=== PATIENT | female | born 1940 | race Caucasian/White ===

== ENCOUNTER 2018-12-05 15:36 | Inpatient (IN) | payer MEDICARE ==
[~2018-12-05] VITALS: Ht 162.6 cm; Wt 54.9 kg
[2018-12-05 16:25] LABS: BASOPHILS ABSOLUTE AUTO 0.02 K/mm3 (0.00-0.23); BASOPHILS PERCENT AUTO 0 % (0-2); EOSINOPHILS PERCENT AUTO 0 % (0-6); Hematocrit 46.8 % (33.0-51.0); IMMATURE GRAN ABSOLUTE AUTO 0.06 K/mm3 (0.00-0.10); IMMATURE GRAN PERCENT AUTO 1 % (0-1); LYMPHOCYTES ABSOLUTE AUTO 0.94 K/mm3 (0.84-5.20); LYMPHOCYTES PERCENT AUTO 9 % (21-46); MONOCYTES ABSOLUTE AUTO 0.97 K/mm3 (0.16-1.47); MONOCYTES PERCENT AUTO 9 % (4-13); Mean Corpuscular HGB 31.6 pg (26.0-34.0); Mean Corpuscular HGB Conc 32.1 g/dL (31.5-36.5); Mean Corpuscular Volume 99 fL (80-100); Mean Platelet Volume 10.7 fL (9.1-12.4); NEUTROPHILS ABSOLUTE AUTO 8.56 K/mm3 (1.96-9.15); NEUTROPHILS PERCENT AUTO 81 % (41-73); Platelet Count 208 K/mm3 (150-400); RDW Coefficient Variation 14.4 % (11.7-14.2); RDW Standard Deviation 51.9 fL (35.1-46.3); Red Blood Cell Count 4.75 M/mm3 (3.80-5.20); White Blood Cell Count 10.55 K/mm3 (4.00-11.30)
[2018-12-05 16:38] LABS: Albumin, Blood 3.6 g/dL (3.4-5.0); Albumin/Globulin Ratio 1.1 (0.8-1.8); Bilirubin, Total 3.1 mg/dL (0.1-1.0); Bun/Creatinine Ratio 39.1 (12.0-20.0); Calcium, Blood 8.8 mg/dL (8.5-10.1); Creatinine, Blood 1.1 mg/dL (0.40-1.00); Globulin, Blood 3.4 g/dL (2.2-4.0); Potassium, Blood 5.1 mmol/L (3.5-5.5); Troponin I 0.155 ng/mL (0.000-0.040)
[2018-12-05 17:39] LABS: International Normalized Ratio 1.58; Prothrombin Time Results 16.1 Sec (9.7-11.5)
--- NOTE | 2018-12-05 19:32 | NUR ---
ADMIT: PT ARRIVED TO ICU 6 VIA STRETCHER. PT PALE, COOL AND CLAMMY UPON ARRIVAL. PT COMPLAINING OF 5/10 DULL CHEST PAIN UPON ARRIVAL THAT RADIATES TO HER L SHOULDER BLADE AND STOMACH PAIN. NITRO PASTE APPLIED TO R CHEST. DR. TORRES ON THE UNIT CURRENTLY AND NOTIFIED OF CONSULT. SPOKE WTIH DR. TORRES ABOUT PT'S SYMPTOMS AND HAD HIM REVIEW PT'S EKG. DR. TORRES REQUESTED DR. CALIX BE NOTIFIED FOR HEART CATH TONIGHT. DR. CALIX NOTIFIED WELL WEDDING DESIGNER TO CALL IN CATH TEAM. DR. CALIX ORDERED HEPARIN BOLUS, GIVEN. DR. CALIX CAME TO THE BEDSIDE AND GAVE ORDERS FOR 5MG CARIDZEM BOLUS AND THEN DRIP, ALL WERE GIVEN. PT REMAINS IN AFIB RATE DOWN TO THE LOW 100-110S NOW. HERNANDEZ BEIGN PLACED BY TRAIN INSPECTOR PER DR. CALIX'S ORDERS. WILDLIFE MANAGER TEAM HERE PREPPING PT CURRENTLY. REPORT GIVEN TO RENA MURDOCK.
--- NOTE | 2018-12-05 19:38 | NUR ---
DOCTOR CALIX IN TO SEE PATIENT AND PATIENT IS NOW GETTING READY FOR MILLED LUMBER GRADER. MILLED LUMBER GRADER NURSES IN ROOM PREPPING PATIENT. HERNANDEZ CATH PLACED WITH SMALL AMT OF BRIGHT RED URINE IN TUBING PLAN TO OBTAIN UA WHEN PATIENT RETURNS TO ICU POST CATH. BLADDER SCAN DONE SHOWING APROX 60 CC OF URINE REMAINING IN BLADDER. LASIX 60MG IV GIVEN PER DOCTOR CALIX. PATIENT AWAKE WITH FAMILY AT BEDSIDE. PATIENT VERBALIZED CHEST PAIN CONTINUES RATING 4/10. CARDIZEM DRIP INFUSING AT 5MG/HR.
--- NOTE | 2018-12-05 21:30 | NUR ---
PATIENT ARRIVED TO ICU 6 VIA BED FORM PROFESSOR OF THEOLOGY. PATIENT AWAKE VERBALIZED NO FURTHER CHEST PAIN. AGGRASTAT INFUSING FROM PROFESSOR OF THEOLOGY TO CONTINUE X 12HR. RIGHT GROIN SITE SOFT WITH DRESSING CD&I. ADMIT HX AND ASSESSMENT COMPLETED. UA SENT PER PROTOCOL. HERNANDEZ REMAINS IN PLACE TO MONITOR I&O CLOSELY DUE TO LASIX IV.
--- NOTE | 2018-12-05 22:00 | NUR ---
PATIENT C/O NAUSEA AND FEELING IF HAVING BURNING FEELING MID UPPER GASTRIC. PRODUCING MOD AMT OF FROTHY WHITE SPUTUM, USING SUCTION TO HELP SPIT SPUTUM OUT DUE TO NEEDING TO KEEP HEAD DOWN AND RIGHT LEG/GROIN FLAT. RIGHT GROIN SITE REMAINS SOFT AND DRESSING CD&I.
[2018-12-05 22:10] LABS: Source, Urine Catheter
[2018-12-05 22:18] LABS: Bilirubin, Urine Neg (Neg); Blood, Urine 5+ (Neg); Glucose Qualitative, Urine Neg (Neg); Ketones, Urine Neg (Neg); Leukocyte Esterase, Urine Neg (Neg); Nitrite, Urine Neg (Neg); Protein, Urine 2+ (Neg); Urobilinogen, Urine NORM (Normal)
[2018-12-05 22:25] LABS: Appearance, Urine Clear (Clear); Bacteria Mod /hpf; Color, Urine Yellow (P-Yellow); Red Blood Cells, Urine 50-100 /hpf (0-2); Squamous Epithelial Cells Rare /hpf (Few); White Blood Cells, Urine 0-2 /hpf (0-5)
[2018-12-05 22:26] LABS: Hyaline Casts 0-2 /lpf (0-2)
[2018-12-06 03:23] LABS: Hematocrit 42.3 % (33.0-51.0); Hemoglobin 13.5 g/dL (11.5-16.0); Mean Corpuscular HGB 31.5 pg (26.0-34.0); Mean Corpuscular HGB Conc 31.9 g/dL (31.5-36.5); Mean Corpuscular Volume 99 fL (80-100); Mean Platelet Volume 10.7 fL (9.1-12.4); Platelet Count 192 K/mm3 (150-400); RDW Coefficient Variation 14.5 % (11.7-14.2); RDW Standard Deviation 51.8 fL (35.1-46.3); Red Blood Cell Count 4.29 M/mm3 (3.80-5.20); White Blood Cell Count 11.57 K/mm3 (4.00-11.30)
[2018-12-06 03:47] LABS: Bun/Creatinine Ratio 41.5 (12.0-20.0); Calcium, Blood 8.2 mg/dL (8.5-10.1); Creatinine, Blood 1.3 mg/dL (0.40-1.00); Free Thyroxine 1.23 ng/dL (0.70-1.60); Magnesium, Blood 2.2 mg/dL (1.6-2.4); Potassium, Blood 4.2 mmol/L (3.5-5.5)
[2018-12-06 03:52] LABS: Thyroid Stimulating Hormone 0.274 uIU/mL (0.360-4.800)
--- NOTE | 2018-12-06 05:59 | NUR ---
PATIENT SLEEPING HEART RATE DOWN TO 59-63 CONTINUES AFIB DIG HELD AND CARDIZEM OFF. BIOX DOWN TO 88% OXYGEN WHILE SLEEPING INCREASED TO 5L/NC TO KEEP SATS ABOVE 90%
--- NOTE | 2018-12-06 06:31 | NUR ---
SUMMARY PATIENT SLEEPING OFF AND ON AFTER 0130. RIGHT GROIN SITE REMAINS SOFT WITH NO SWELLING OR BLEEDING SEEN. WHILE SLEEPING HEART RATE DOWN TO 58 REMAINS IN AFIB. CARDIZEM DRIP OFF AT THIS TIME AND 0600 DOSE OF DIG HELD. WHILE SLEEPING BIOX DOWN TO 88% OXYGEN TITRATED UP TO 5L/NC. PATIENT AWAKENS TO SLIGHT STIMULI CONTINUES TO HAVE NO COMPLAINTS OF CHEST PAIN.
--- NOTE | 2018-12-06 06:54 | NUR ---
PATIENT UP TO BSC TO ATTEMPT BM. UP WITH MIN ASSIST.
[2018-12-06 08:55] LABS: Thyroxine (T4) 5.8 ug/dL (4.8-13.9); Triiodothyronine, Free 1.27 pg/mL (2.18-3.98)
--- NOTE | 2018-12-06 09:41 | NUR ---
ECHOCARDIOGRAM COMPLETED
--- NOTE | 2018-12-06 10:41 | NUR ---
0750: CARE ASSUMED, ASSESSMENT COMPLETED. PT RESTING IN BED, DENIES CP/PRESSURE, SOB, OR C/O AT THIS TIME, DENIES NAUSEA OR ABD DISCOMFORT. HR 60'S AFIB, CARDIZEM GTT REMAINS OFF, AGGRESTAT INFUSING AT 6ML/HR. RIGHT GROIN PCI ACCESS SITE WNL, DRESSING INTACT WITH A 0.5CM SPOT OF DRIED RED DRAINAGE, NO ACTIVE OOZING NOTED. SITE TENDER TO PALPATION, NO HEMATOMA NOTED. 0900: DR.'S CALIX AND LEIGH IN TO SEE PT, NEW ORDERS RECEIVED, AGGRESTAT OFF PER ORDERS. HR REMAINS 60'S-70'S AFIB, WILL CONTINUE TO MONITOR. 1030: ELIQUIS AND DOBUTAMINE ADMINISTERED PER ORDERS. HR 70'S AFIB, BP WNL. PT SITTING UP IN BED VISITING WITH , IS PLEASANT AND COOPERATIVE, DENIES NEEDS OR C/O AT THIS TIME. CONTINUES TO DENY CP.
--- NOTE | 2018-12-06 12:13 | NUR ---
DR. HONG AT BEDSIDE, PT DENIES PAIN OR C/O. TITRATING O2 DOWN ABLE. VS REMAIN STABLE, MAP >65, HR 80'S, LEVO REMAINS OFF. PT DENIES C/O AT THIS TIME, WILL ADVANCE DIET PER ORDERS.
--- NOTE | 2018-12-06 12:20 | NUR ---
PT SITTING UP IN CHAIR EATING LUNCH AND TALKING WITH SISTER AT BEDSIDE, DENIES CHEST PAIN/PRESSURE OR C/O, STATES SHE IS MILDLY SOB BUT THAT THIS IS BASELINE. DR. CALIX AT BEDSIDE TO DISCUSS PLAN WITH PATIENT. PT TOLERATING DOBUTAMINE GTT WELL, HR 60'S - 70'S. BP'S REMAIN STABLE.
[2018-12-06 14:26] LABS: Albumin, Blood 3.3 g/dL (3.4-5.0); Bilirubin, Total 2.4 mg/dL (0.1-1.0); Bun/Creatinine Ratio 48.3 (12.0-20.0); Calcium, Blood 8.6 mg/dL (8.5-10.1); Creatinine, Blood 1.18 mg/dL (0.40-1.00); Globulin, Blood 3.2 g/dL (2.2-4.0); Potassium, Blood 3.8 mmol/L (3.5-5.5); Total Protein, Blood 6.5 g/dL (6.4-8.2)
--- NOTE | 2018-12-06 15:27 | NUR ---
[facility] visit: Mrs. Cartwright was alone in room and quietly sitting in chair. She is very soft-spoken and appears to have a naturally gentle nature. She has a strong sukumar and was appreciaitive of prayer/spiritual encouragement. She appears frail, but smiles easily. She tells me she is not fearful or worried. She responded well to spiritual support.
--- NOTE | 2018-12-06 16:29 | NUR ---
Initial palliative care consult: Met with Benita in her room this afternoon. She is an 78 year old with a history of breast cancer, a-fib, HTN and cardiomyopathy. She was admitted yesterday with CHF and has a current EF of 10-15%. Benita was surprised by the EF number. She stated that last time she had an echo done she was at 26%. [place] 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 Recently she has been very fatigued, SOB, decreased appetite, a 10 pound weight gain and has had abdominal pain. She reports she has a couple brothers and a brother in law. She never had any children. She continues to drive, shop, cook, clean and do all her own ADLs, however she reports that recently this has become more of a challange. She stopped taking cardiac medications several years ago per report. She is hoping that her heart function improves. She states she eats mostly a ketogenic diet and weighs herself daily. Discussed heart failure and daily care that is required to manage symptoms of that disease. Discussed code status, benefit and risks of resusitation and she confirms that she wants to maintain her full code status but that she would not want to live on machines buttermaker. Encouraged her to think about her wishes re: medical care. She states she will think about it and talk with her tomorrow when he comes in to visit. Asked her about her breast cancer and she stated she had treatment for that in 2007 with no concerns of any cancer recurrence since that time. Assisted her up to the BS. She had a couple of small smears on the toilet paper of what appears to be black stools. She reports that her stool has been this color for awhile. Spoke with nursing who noticed the black stools earlier and had already sent a sample to the lab. Decreased appetite. Her liver enzymes have elevated since yesterday, nursing notified MD of the change in labs. PC to follow up with Benita to continue to discuss her goals for care. Will also encourage her to fill out an AD/POLST once she has time to talk to her about her wishes. Briefly discussed options of stabilizing her CHF vs. continued decline of function and possibility of hospice. At this time she is hoping to improve to be able to go back to taking care of her property. PC to follow in the coming days.
[2018-12-06 17:05] LABS: Stool Occult Blood Guaiac 1 Pos (Neg)
[2018-12-06 17:17] LABS: Source, Urine Catheter
[2018-12-06 17:32] LABS: Bilirubin, Urine Neg (Neg); Blood, Urine 5+ (Neg); Glucose Qualitative, Urine Neg (Neg); Ketones, Urine Neg (Neg); Leukocyte Esterase, Urine 1+ (Neg); Nitrite, Urine Neg (Neg); Protein, Urine 2+ (Neg); Urobilinogen, Urine NORM (Normal)
[2018-12-06 17:37] LABS: Appearance, Urine Hazy (Clear); Color, Urine Red (P-Yellow)
[2018-12-06 17:38] LABS: Red Blood Cells, Urine TNTC /hpf (0-2)
[2018-12-06 17:39] LABS: Bacteria Few /hpf; Squamous Epithelial Cells Rare /hpf (Few); White Blood Cells, Urine 0-2 /hpf (0-5)
--- NOTE | 2018-12-06 17:39 | NUR ---
1400: PT UP FROM CHAIR TO BSC FOR SMALL, BLACK, STICKY STOOL, SAMPLE SENT TO LAB FOR GUIAC. PT STATES STOOLS HAVE BEEN BLACK X3 DAYS. PT ASSISTED BACK TO BED, VSS, PT DENIES CHEST PAIN OR SOB AT THIS TIME, HR 80'S, DOBUTAMINE CONTINUES AT 1MCG PER ORDERS. PT'S URINE IN HERNANDEZ BAG HAS CHANGED IN COLOR FROM YELLOW TO PINK, WILL CONTINUE TO MONITOR. 1600: PALLIATIVE CARE AT BEDSIDE TO SPEAK WITH PT. DR. ABRAHAM NOTIFIED OF PT'S ALT AND AST, NEW ORDERS RECEIVED. PT ASSISTED TO BSC TO HAVE A SMEAR OF BLACK TARRY STOOL. DR. ABRAHAM NOTIFIED OF STOOLS AND PINK URINE, NO NEW ORDERS AT THIS TIME. 1730: STOOLS GUIAC POSITIVE, URINE REMAINS DARK PINK, NOT ASHLEY. DR ABRAHAM CALLED AGAIN, NEW ORDERS RECEIVED. 1800: LABS DRAWN, PT SITTING UP IN BED EATING DINNER, MAP 70'S, HR 80'S, PT DENIES DIZZINESS OR FEELING LIGHT HEADED, DENIES ABD PAIN/DISCOMFORT, OR NAUSEA. PT NOTIFIED OF BLEEDING, WILL CONTINUE TO MONITOR.
[2018-12-06 18:21] LABS: Hematocrit 42.5 % (33.0-51.0); Hemoglobin 13.9 g/dL (11.5-16.0)
--- NOTE | 2018-12-06 19:43 | NUR ---
1900: HGB SLIGHTLY UP FROM LAST LEVEL, WILL CONTINUE TO MONITOR. DOBUTAMINE REMAINS AT 1MCG, SBP 97, MAPS >65. HR REMAINS 70'S - 80'S AFIB. PT HAD ALMOST 4L URINE OUTPUT THIS SHIFT, 779ML ORAL INTAKE. PT DENIES CHEST PAIN/PRESSURE, SOB MILD WITH EXERTION, O2 REMAINS 3L/NC, SPO2 94%. URINE REMAINS BLOOD TINGED, NO ASHLEY BLOOD PRESENT AT RECTUM OR IN HERNANDEZ. RIGHT GROIN ACCESS SITE WNL, NO HEMATOMA NOTED, PT STATES TENDERNESS IS MINIMAL. REPORT TO ONCOMING SHIFT.
--- NOTE | 2018-12-06 19:46 | NUR ---
PATIENT RESTING IN BED VISITING WITH HER SISTER. A&O X3, DENIES PAIN VERBALIZED A SLIGHT TIGHTNESS ACROSS HER SHOULDERS RELIVED WITH REPOSITIONING PILLOWS. DOBUTAMINE DRIP AT [address] HERNANDE[address] PLACE DRAINING ORANGE/TEA COLORED URINE. OXYGEN AT 2L/NC.
--- NOTE | 2018-12-06 20:08 | NUR ---
DOCTOR FIFI NOTIFIED OF BLOOD IN URINE AND STOOL AND CHANGES MADE TO PATIENTS MEDICATIONS. PLAN TO WAIT TO START SUB Q HEPARIN IN THE MORNING DUE TO CONTINUED RED TINGED URINE.
[2018-12-07 04:22] LABS: Albumin, Blood 2.8 g/dL (3.4-5.0); Alk Phos 59 U/L (50-136); Anion Gap 7 mmol/L (6-16); Aspartate Aminotrans (AST/SGOT 813 U/L (12-37); Bilirubin, Total 2.1 mg/dL (0.1-1.0); Blood Urea Nitrogen 51 mg/dL (8-24); CO2, Blood 35 mmol/L (21-32); Chloride, Blood 92 mmol/L (98-108); Creatinine, Blood 0.88 mg/dL (0.40-1.00); Globulin, Blood 2.7 g/dL (2.2-4.0); Glomerular Filtration Rate >60 (60-); Glucose, Blood 100 mg/dL (70-99); Potassium, Blood 2.9 mmol/L (3.5-5.5); Sodium, Blood 134 mmol/L (136-145); Total Protein, Blood 5.5 g/dL (6.4-8.2)
[2018-12-07 04:29] LABS: Alanine Aminotransfer (ALT/SGP 1010 U/L (12-78)
[2018-12-07 06:06] LABS: Hemoglobin 12.3 g/dL (11.5-16.0)
--- NOTE | 2018-12-07 06:15 | NUR ---
SUMMARY PATIENT SLEEPING OFF AND ON T/O NIGHT. HEART RATE DOWN TO LOW 60'S WHILE SLEEPING, AFIB CONTINUES. DOBUTAMINE CONTINUES AT 1 MCG T/O THE NIGHT. HERNANDEZ DRAINING ORANGE AND BLOOD TINGED URINE. PATIENT UP TO BSC WITH MIN ASSIST THIS AM FOR BM. RIGHT GROIN SITE REMAINS STABLE.
--- NOTE | 2018-12-07 06:48 | NUR ---
DOCTOR HELENA IN TO SEE PATIENT, SEE NEW ORDERS
--- NOTE | 2018-12-07 07:32 | NUR ---
ASSUMED CARE PT. ALERT AND ORIENTED THIS AM. REPORTS FEELING "BETTER THAN YESTERDAY". PT. DENIES PAIN THIS AM. RESTING COMFORTABLY IN BED. REMAINS ON DOBUTAMIN GTT INFUSING AT 1MCG/KG/MIN. VSS THIS AM, NADN. CALL LIGHT IN REACH. WARM BLANKET PROVIDED, PT REQUESTING TO TAKE A NAP BEFORE LIVER ULTRASOUND THIS AM. HERNANDEZ PATENT AND DRAINING TO GRAVITY.
--- NOTE | 2018-12-07 07:58 | NUR ---
DOBUTAMINE ON STAND BY DR. ABRAHAM IN TO SEE PT. PER DR. HODGES DOBUTAMINE PLACED ON STAND BY.
--- NOTE | 2018-12-07 12:26 | NUR ---
UPDATE PT. AMBULATED TO SHOWER. REMAINED ON 2LNC DURING WALK. PT. DENIED ANY CHEST PAIN OR PRESSURE WHILE WALKING. PT. BACK TO ROOM AND UP IN BEDSIDE CHAIR TO EAT LUNCH. CALL LIGHT IN REACH. VSS.
--- NOTE | 2018-12-07 17:27 | NUR ---
SHIFT SUMMARY PT. ALERT AND ORIENTED. PT. STURDY ON FEET WHEN UP IN ROOM, JUST NEEDS ASSISTANCE WITH CORDS. PT. VSS T/O SHIFT. PT CONTINUES TO DENY ANY CHEST PAIN OR PRESSURE. GOOD APPETITE TODAY. PT AMBULATED TO SHOWER WITH OUT DIFFICULTY. OXYGEN TITRATED OFF WHILE AWAKE, 2LNC WHEN SLEEPING. CALL LIGHT IN REACH, REPORT TO ONCOMING RN.
--- NOTE | 2018-12-07 19:00 | NUR ---
ASSUMED CARE ASSUMED CARE OF PATIENT. PT IS SITTING UP IN CHAIR. DENIES C/O PAIN OR DISCOMFORT. C/O MILD INDIGESTION AFTER DINNER BUT DENIES NEED FOR MEDICATION. MONITOR SHOWS AFIB, RATE 80-100s. RA SATS 95-97%. RESPIRATIONS EVEN AND UNLABORED. BILATERAL JVD NOTED. SEE SHIFT ASSESSMENT FOR FULL ASSESSMENT.
--- NOTE | 2018-12-07 21:55 | NUR ---
O2/SATS RA SATS 87-88% WHILE ASLEEP- O2 2LNC ON AT THIS TIME.
[2018-12-08 02:06] LABS: HBSAG SCREEN Negative (Negative); HEP A AB, IGM Negative (Negative); HEP B CORE AB, IGM Negative (Negative); HEP C VIRUS AB <0.1 (0.0-0.9)
[2018-12-08 03:10] LABS: BASOPHILS PERCENT AUTO 0 % (0-2); EOSINOPHILS PERCENT AUTO 2 % (0-6); Hematocrit 39.8 % (33.0-51.0); Hemoglobin 12.8 g/dL (11.5-16.0); IMMATURE GRAN ABSOLUTE AUTO 0.02 K/mm3 (0.00-0.10); IMMATURE GRAN PERCENT AUTO 0 % (0-1); LYMPHOCYTES ABSOLUTE AUTO 1.14 K/mm3 (0.84-5.20); LYMPHOCYTES PERCENT AUTO 17 % (21-46); MONOCYTES ABSOLUTE AUTO 0.98 K/mm3 (0.16-1.47); MONOCYTES PERCENT AUTO 15 % (4-13); Mean Corpuscular HGB 31.3 pg (26.0-34.0); Mean Corpuscular HGB Conc 32.2 g/dL (31.5-36.5); Mean Corpuscular Volume 97 fL (80-100); NEUTROPHILS ABSOLUTE AUTO 4.42 K/mm3 (1.96-9.15); NEUTROPHILS PERCENT AUTO 66 % (41-73); Platelet Count 154 K/mm3 (150-400); RDW Coefficient Variation 14.1 % (11.7-14.2); RDW Standard Deviation 49.8 fL (35.1-46.3); Red Blood Cell Count 4.09 M/mm3 (3.80-5.20); White Blood Cell Count 6.66 K/mm3 (4.00-11.30)
[2018-12-08 03:28] LABS: Alanine Aminotransfer (ALT/SGP 869 U/L (12-78); Albumin, Blood 3.1 g/dL (3.4-5.0); Alk Phos 78 U/L (50-136); Anion Gap 4 mmol/L (6-16); Aspartate Aminotrans (AST/SGOT 514 U/L (12-37); Bilirubin, Total 2.2 mg/dL (0.1-1.0); Blood Urea Nitrogen 34 mg/dL (8-24); Bun/Creatinine Ratio 51.4 (12.0-20.0); CO2, Blood 39 mmol/L (21-32); Calcium, Blood 8.4 mg/dL (8.5-10.1); Chloride, Blood 91 mmol/L (98-108); Creatinine, Blood 0.66 mg/dL (0.40-1.00); Glomerular Filtration Rate >60 (60-); Glucose, Blood 93 mg/dL (70-99); Potassium, Blood 3.5 mmol/L (3.5-5.5); Sodium, Blood 134 mmol/L (136-145); Total Protein, Blood 6.1 g/dL (6.4-8.2)
--- NOTE | 2018-12-08 03:30 | NUR ---
TRANSFER AWAKE FOR AM LAB DRAW. DENIES C/O PAIN OR DISCOMFORT. VSS. REMAINS ON 2LNC AT THIS TIME. HERNANDEZ IN PLACE. TRANSFERRED TO PCU 7 VIA WHEELCHAIR.
--- NOTE | 2018-12-08 03:35 | NUR ---
ASSUMED CARE PT ARRIVES TO PCU 7 AT APPROXIMATELY 0330. CURRENTLY AOX4, VSS, TRANSFERS WITH STANDBY ASSIST TO HOSPITAL BED FROM WHEELCHAIR AND IS RESTING ON BEDSIDE. PT REQUESTING TO SIT UP ON SIDE OF BED FOR A BIT AND ASKING FOR COFFEE. PT EDUCATED ON SAFETY WITH AMBULATION AND CALLING FOR ASSISTANCE. ORIENTED TO ROOM AND CALL LIGHT SYSTEM. PT DENIES CHEST PAIN. LUNG SOUNDS WITH CLEAR UPPER LOBES AND DIMINSHED CRACKLES TO BILATERAL BASES. PT NOTED TO HAVE SWELLING AND BRUISING TO R INNER ELBOW- STATES THAT BRUISING IS FROM BLOOD DRAWS AND THE "SWELLING" IS A LYPOMA THAT SHE HAD PRIOR TO ARRIVAL. PT DENIES PAIN TO THE SITE. CARDIAC RHYTHM SHOWS ATRIAL FIBRILLATION WITH BBB AND RATE OF 78. HAT PLACED IN BATHROOM TWO GUAIAC SPECIMENS ARE STILL NEEDED. PT REPORTS UNDERSTANDING. HERNANDEZ CURRENTLY PATENT AND DRAINING RED/RODRICK URINE TO GRAVITY. WILL CONTINUE TO MONITOR. BED IN LOW POSITION, CALL LIGHT IN REACH.
--- NOTE | 2018-12-08 06:01 | NUR ---
SHIFT SUMMARY PT HAS REMAINED AOX4 THROUGHOUT REMAINDER OF SHIFT. VSS. PLEASANT AND COOPERATIVE WITH CARE. NO ACUTE CHANGES FROM ARRIVAL THIS AM. PT CONTINUES TO REST IN BED COMFORTABLY. WILL CONTINUE TO MONITOR AND REPORT TO ONCOMING SHIFT RN. BED IN LOW POSITION, CALL LIGHT IN REACH.
--- NOTE | 2018-12-08 19:30 | NUR ---
SHIFT SUMMARY PT RESTING IN BED THROUGHOUT THE DAY. VSS. ALERT AND ORIENTED X3. C/O 2/10 BACK PAIN, PT REPOSITIONING HERSELF FOR COMFORT. LUNG SOUNDS CLEAR UPPER LOBES, CRACKLES IN THE BASES. AFIB RATE 68 PER TELEMETRY, HEART TONES IRREGULAR AND MURMUR NOTED BY AUSCULTATION. HERNANDEZ DRAINING CLEAR YELLOW URINE, BLADDER TRAINING COMPLETED THIS AFTERNOON, HERNANDEZ DC'D BY PAPA AT 1900. 1+ PITTING EDEMA TO BILATERAL FEET. PT AMBULATING INDEPENDENTLY IN ROOM, DENIES DIZZINESS OR LIGHTHEADEDNESS.
[2018-12-09 04:21] LABS: Alanine Aminotransfer (ALT/SGP 742 U/L (12-78); Albumin, Blood 3.1 g/dL (3.4-5.0); Alk Phos 88 U/L (50-136); Anion Gap 7 mmol/L (6-16); Aspartate Aminotrans (AST/SGOT 359 U/L (12-37); Bilirubin, Total 1.9 mg/dL (0.1-1.0); Blood Urea Nitrogen 24 mg/dL (8-24); Bun/Creatinine Ratio 42.1 (12.0-20.0); CO2, Blood 34 mmol/L (21-32); Calcium, Blood 8.6 mg/dL (8.5-10.1); Chloride, Blood 93 mmol/L (98-108); Creatinine, Blood 0.57 mg/dL (0.40-1.00); Globulin, Blood 3.1 g/dL (2.2-4.0); Glomerular Filtration Rate >60 (60-); Glucose, Blood 103 mg/dL (70-99); Potassium, Blood 3.7 mmol/L (3.5-5.5); Sodium, Blood 134 mmol/L (136-145); Total Protein, Blood 6.2 g/dL (6.4-8.2)
--- NOTE | 2018-12-09 06:04 | NUR ---
END OF SHIFT SUMMARY NO ACUTE CHANGES THIS SHIFT. VSS BUT BP NOTED TO BE LOW, SYSTOLIC 90'S. ENTRESTO WAS NOT GIVEN DUE TO STATED PARAMETERS. PT HAS REQUIRED LITTLE FROM STAFF THIS SHIFT. MARY LUA, HAS VOIDED SINCE THEN. PT CONTINUES TO BE IN AFIB, CONTROLLED RATE 60'S. PREV ANGIO SITE INTACT. PT CONTINUES TO DENY CP/PRESSURE. CALL LIGHT WIOTHIN REACH. PT USES APPROPRIATELY. BED IN LOWEST POSITION. WILL CONTINUE TO MONITOR PT UNTIL SHIFT CHANGE.
--- NOTE | 2018-12-09 09:00 | NUR ---
ASSUMED CARE PT CARE ASSUMED AT APPROXIMATELY 0700. PT IS CURRENTLY RESTING IN BED AND AOX4. VSS. IN A PLEASANT MOOD AND VISITING WITH FAMILY AT THE BEDSIDE. LUNG SOUNDS ARE CLEAR IN UPPER LOBES WITH CRACKLES TO BILATERAL BASES. O2 SATS OF 93% ON RA, PT DENIES DYSPNEA. NO NOTED EDEMA TO LOWER EXTREMITIES. PT IS EXCITED TO BE DISCHARGED TODAY. PT DENIES PAIN AT THIS TIME. EDUCATION PROVIDED ON NEW MEDICATIONS BEING ADMINISTERED AND BEING PRESCRIBED UPON DISCHARGE. PT SITTING UPRIGHT AND EATING BREAKFAST IN BED, EXPRESSES FEELING EXCITED TO GO HOME TODAY. AWAITING DISCHARGE ORDERS AND INSTRUCTIONS. WILL CONTINUE WITH MONITORING. BED IN LOW POSITION, CALL LIGHT IN REACH.
[2018-12-09] MEDS ORDERED: ACET500 PO (09:26)
[2018-12-09] MEDS ORDERED: Aspir 8181 MG PO (09:27)
[2018-12-09] MEDS ORDERED: ATOR10 PO (09:28)
[2018-12-09] MEDS ORDERED: FURO40 PO (09:29)
[2018-12-09] MEDS ORDERED: CLOP75 PO (09:29)
[2018-12-09] MEDS ORDERED: METO25 PO (09:30)
[2018-12-09] MEDS ORDERED: POTCHL20ER PO (09:31)
[2018-12-09] MEDS ORDERED: ENTRESTO 24 MG1 EAC1 PO (09:32)
[2018-12-09] MEDS ORDERED: Aldactone50 MG PO (09:33)
--- NOTE | 2018-12-09 11:30 | NUR ---
DISCHARGE DISCHARGE INSTRUCTIONS COMPLETE AND DISCUSSED WITH PATIENT. EDUCATED PATIENT ON NEW MEDICATIONS, FOLLOW UP APPOINTMENTS, AND HOME SELF-ASSESSMENT. DEMO EVENT SPECIALIST IN TO SPEAK WITH PATIENT ABOUT HOME NUTRITION OPTIONS AND LOW SODIUM DIET. HOME O2 EVALUATION PERFORMED BY RT AND DETERMINED THAT HOME O2 IS NOT NEEDED. WRITTEN EDUCATION AND INFORMATION PROVIDED IN PATIENT DISCHARGE PACKET AND GIVEN TO PATIENT. FAMILY AT BEDSIDE WILL PROVIDE PATIENT WITH RIDE HOME. ANTICIPATING DISCHARGE SHORTLY.
--- NOTE | 2018-12-09 12:35 | NUR ---
DISCHARGED HOME PT DISCHARGED HOME WITH FAMILY MEMBER. WHEELED OUT VIA WHEELCHAIR WITH DISCHARGE PACKET. PT VERBALIZES UNDERSTANDING OF DC INSTRUCTIONS AND NEW MEDICATIONS. MEDS FAXED TO [facility].
== END 2018-12-09 13:00 | disposition home or self-care (01) | DRG 246 ==
LOC: ER 15:36 → ICUE 17:54 → ICUW 17:54 → ICUE 18:45 → PCU 12-08 03:40
PROVIDERS: Emergency Medicine; Internal Medicine; Internal Medicine Interventional Cardiology; ADMIT Internal Medicine
PROC: 027034Z Dilation of Coronary Artery, One Artery with Drug-eluting Intraluminal Device, Percutaneous Approach (ICD-10-PCS; principal; 2018-12-05)
PROC: 4A033BC Measurement of Arterial Pressure, Coronary, Percutaneous Approach (ICD-10-PCS; 2018-12-05)
PROC: B2111ZZ Fluoroscopy of Multiple Coronary Arteries using Low Osmolar Contrast (ICD-10-PCS; 2018-12-05)
PROC: 4A023N8 Measurement of Cardiac Sampling and Pressure, Bilateral, Percutaneous Approach (ICD-10-PCS; 2018-12-05)
DX: I13.0 Hypertensive heart and chronic kidney disease with heart failure and stage 1 through stage 4 chronic kidney disease, or unspecified chronic kidney disease (principal); I50.23 Acute on chronic systolic (congestive) heart failure; Z87.891 Personal history of nicotine dependence; Z85.3 Personal history of malignant neoplasm of breast; I71.2 Thoracic aortic aneurysm, without rupture; I34.0 Nonrheumatic mitral (valve) insufficiency; N18.3 Chronic kidney disease, stage 3 (moderate); I44.7 Left bundle-branch block, unspecified; Z91.19 Patient's noncompliance with other medical treatment and regimen; I25.10 Atherosclerotic heart disease of native coronary artery without angina pectoris; R31.9 Hematuria, unspecified; R94.5 Abnormal results of liver function studies; I25.5 Ischemic cardiomyopathy; N32.89 Other specified disorders of bladder
CPT/HCPCS: 36415; 51703; 71046; 76770; 80048; 80053; 80074; 81001; 82270; 83690; 83735; 83880; 84132; 84436; 84439; 84443; 84481; 84484; 85014; 85018; 85025; 85027; 85347; 85610; 85730; 87086; 87147; 93005; 93010; 93308; 93321; 93456; 93571; 94761; 96374; 96375; 99152; 99153; 99285-25; A9270; C1760; C1769; C1874; C1887; C1894; C9600; J1160; J1250; J1644; J1940; J2250; J2405; J3010; J3246; J7030; J7050; Q9967

== ENCOUNTER → 2019-01-26 | Outpatient (CLI) | payer MEDICARE ==
[~2019-01-26] MED LIST: ACET500 PO; ATOR10 PO; Aldactone50 MG PO; Aspir 8181 MG PO; CLOP75 PO; ENTRESTO 24 MG1 EAC1 PO; FURO40 PO; METO25 PO; POTCHL20ER PO
[2019-01-26 14:28] LABS: Red Blood Cells, Urine 0-2 /hpf (0-2)
[2019-01-26 14:29] LABS: Bacteria Few /hpf; Squamous Epithelial Cells Few /hpf (Few)
== END | disposition home or self-care (01) ==
LOC: OLS 05:00 → LAB SHORT 05:00 → LAB FUT 01-26 15:45
PROVIDERS: Internal Medicine
DX: R31.9 Hematuria, unspecified (principal)
CPT/HCPCS: 81015

== ENCOUNTER → 2019-04-05 | Outpatient (CLI) | payer MEDICARE ==
[2019-04-06 11:37] LABS: Candida species (DNA Probe) Negative (NEGATIVE); G. vaginalis (DNA Probe) Positive (NEGATIVE); T. vaginalis (DNA Probe) Negative (NEGATIVE)
== END | disposition home or self-care (01) ==
LOC: LAB SHORT 18:20 → LAB 18:20
PROVIDERS: Internal Medicine
DX: N76.0 Acute vaginitis (principal)
CPT/HCPCS: 87480; 87510; 87660

== ENCOUNTER 2019-06-04 20:29 | Inpatient (IN) | payer MEDICARE ==
[~2019-06-04] VITALS: Ht 175.3 cm; Wt 64.6 kg
[~2019-06-04 20:29] MED LIST changes: -FURO40 PO
[2019-06-04 20:51] LABS: PCO2 Arterial 29.8 mmHg (35-45); pH Blood Arterial 7.09 (7.35-7.45)
[2019-06-04 21:02] LABS: BASOPHILS ABSOLUTE AUTO 0.02 K/mm3 (0.00-0.23); BASOPHILS PERCENT AUTO 0 % (0-2); EOSINOPHILS PERCENT AUTO 0 % (0-6); Hematocrit 46.6 % (33.0-51.0); Hemoglobin 14.2 g/dL (11.5-16.0); IMMATURE GRAN ABSOLUTE AUTO 0.11 K/mm3 (0.00-0.10); IMMATURE GRAN PERCENT AUTO 1 % (0-1); LYMPHOCYTES ABSOLUTE AUTO 0.56 K/mm3 (0.84-5.20); LYMPHOCYTES PERCENT AUTO 4 % (21-46); MONOCYTES PERCENT AUTO 11 % (4-13); Mean Corpuscular HGB 32.8 pg (26.0-34.0); Mean Corpuscular HGB Conc 30.5 g/dL (31.5-36.5); Mean Platelet Volume 11.1 fL (9.1-12.4); NEUTROPHILS ABSOLUTE AUTO 11.09 K/mm3 (1.96-9.15); NEUTROPHILS PERCENT AUTO 84 % (41-73); Platelet Count 112 K/mm3 (150-400); RDW Coefficient Variation 14.2 % (11.7-14.2); Red Blood Cell Count 4.33 M/mm3 (3.80-5.20); White Blood Cell Count 13.18 K/mm3 (4.00-11.30)
[2019-06-04 21:03] LABS: Mean Corpuscular Volume 108 fL (80-100)
[2019-06-04 21:28] LABS: D-Dimer, Quantitative 14.87 mg/L FEU (0.00-0.52); International Normalized Ratio 3.92; Prothrombin Time Results 38.8 Sec (9.7-11.5)
[2019-06-04 21:38] LABS: Albumin, Blood 3.7 g/dL (3.4-5.0); Albumin/Globulin Ratio 1.2 (0.8-1.8); Bilirubin, Total 6.7 mg/dL (0.1-1.0); Bun/Creatinine Ratio 27.4 (12.0-20.0); Creatinine, Blood 2.66 mg/dL (0.40-1.00); Globulin, Blood 3.2 g/dL (2.2-4.0); Potassium, Blood 5.9 mmol/L (3.5-5.5); Total Protein, Blood 6.9 g/dL (6.4-8.2); Troponin I 1.67 ng/mL (0.000-0.040)
[2019-06-04] MEDS ORDERED: ASCO500 PO (22:40)
[2019-06-04] MEDS ORDERED: FUROSEMIDE20 MG PO (22:40)
[2019-06-04] MEDS ORDERED: Hair, Skin & N1 EACH PO (22:41)
[2019-06-04] MEDS ORDERED: THYROSAFE PO (22:45)
--- NOTE | 2019-06-04 23:30 | NUR ---
PT ARRIVES TO ICU 10 FROM ER, NOTED ALERT AND ORIENTED AT THIS TIME, SPEAKING IN SHORT SENTENCES, SATS ARE MID 80S WITH OXYGEN VIA NASAL CANNULA AND AT 15 L/MIN VIA NONREBREATHER MASK, INTERCOSTAL RETRACTIONS ARE NOTED, LUNGS ARE CLEAR BILAT UPPER LOBES, DIM MID TO BASES BILAT. HEART RATE IRREGULAR, RATE NOTED 140S, WIDE COMPLEX, MARKEDLY HYPOTENSIVE WITH LEVOPHED GTT AT 30 MCG/MIN AND DOBUTAMINE AT 5 MCG/KG/MIN, RADIAL AND PEDAL PULSES ARE DIFFICULT TO PALPATE, JVD IS NOTED WITH PT RECLINING IN BED. ABD DISTENDED, HYPOACTIVE BOWEL TONES ARE NOTED, TENDER TO PALP, PT REPORTS 10/10 PAIN ACROSS EPIGASTRIC AREA JUST INFERIOR TO DIAPHRAGM WHICH SHE DESCRIBES A PRESSURE, STATES ONSET 3 DAYS TO 1 WEEK AGO. TEMP PROBE HERNANDEZ IN PLACE, NO URINE OUTPUT IS NOTED AT THIS TIME, PER PT NO VOID X 3 DAYS, ARCHITECTURAL SUPERINTENDENT REPORTS ONLY 40 ML URINE OUT WITH PLACEMENT OF HERNANDEZ CATH. PT SKIN IS NOTED JAUNDICED, IV ACCESS NOTED BILAT AC, QUAD LUMEN CENTRAL LINE TO RIGHT SUBCLAVIAN IS NOTED, DRESSING DRY AND INTACT, SMALL AMOUNT OF BLEEDING NOTED UNDER DRESSING, WILL MONITOR.
--- NOTE | 2019-06-04 23:49 | NUR ---
CONTACTED BENY AND EXPLAINED TO HIM HOW DIRE HIS WIFES SITUATION IS AND THAT SHE HAS A VERY POOR PROGNOSIS TO MAKE IT THROUGH THE NIGHT. HE STATED HE NEEDED TO GO HOME TO CARE FOR THE ANIMALS AND WOULD BE IN FIRST THING IN THE AM. I EXPLAINED THAT IF SHE DECLINES ANY FURTHER, THAT I WOULD CONTACT HIM.
--- NOTE | 2019-06-05 | NUR ---
DR ENGLAND, HOSPITALIST CIVIL ENGINEER [employer]ELOPMENT, CONTACTED REGARDING PT CONTINUED HYPOTENSION, HYPOXIA, AND INCREASED WORK OF BREATHING, WILL ROUND ON PT.
--- NOTE | 2019-06-05 01:45 | NUR ---
PT SPOUSE AT BEDSIDE, PT AND SPOUSE REQUEST PT BE MADE COMFORT CARE, DR ENGLAND NOTIFIED, WILL ROUND ON PT TO DISCUSS WISHES
--- NOTE | 2019-06-05 02:10 | NUR ---
PT CHANGED TO COMFORT CARE STATUS
--- NOTE | 2019-06-05 03:08 | NUR ---
LEVOPHED AND DOBUTAMINE DC'D PER COMFORT CARE ORDERS. PT SPOUSE AT BEDSIDE.
--- NOTE | 2019-06-05 04:44 | NUR ---
PT NOTED WITH NO RESPIRATIONS, NO PULSE, NO HEART SOUNDS ON AUSCULTATION, ASYSTOLE ON MONITOR, VERIFIED IN 2 LEADS. SPOUSE REMAINS AT BEDSIDE.
--- NOTE | 2019-06-05 05:00 | NUR ---
PT BELONGINGS SENT HOME WITH SPOUSE, WILL CONTACT [facility] OF THE [facility] IN [place] PER SPOUSE REQUEST.
== END 2019-06-05 04:44 | DRG 291 ==
LOC: ER 20:29 → ICUW 22:53
PROVIDERS: Emergency Medicine; ADMIT Hospitalist
PROC: 02HV33Z Insertion of Infusion Device into Superior Vena Cava, Percutaneous Approach (ICD-10-PCS; principal; 2019-06-04)
PROC: 3E043XZ Introduction of Vasopressor into Central Vein, Percutaneous Approach (ICD-10-PCS; 2019-06-04)
DX: I11.0 Hypertensive heart disease with heart failure (principal); J96.01 Acute respiratory failure with hypoxia; N17.9 Acute kidney failure, unspecified; I48.20 Chronic atrial fibrillation, unspecified; I50.23 Acute on chronic systolic (congestive) heart failure; E16.2 Hypoglycemia, unspecified; E87.5 Hyperkalemia; R57.0 Cardiogenic shock; R57.1 Hypovolemic shock; Z79.01 Long term (current) use of anticoagulants; Z66 Do not resuscitate; Z85.3 Personal history of malignant neoplasm of breast; I25.10 Atherosclerotic heart disease of native coronary artery without angina pectoris; I42.9 Cardiomyopathy, unspecified
CPT/HCPCS: 36415; 36556; 36600; 51702; 71045; 80053; 82803; 82947; 83880; 84484; 85025; 85379; 85610; 93005; 93010; 96365-59; 96366-59; 96368; 96375-59; 99285-25; C1751; J1250; J2060; J2405; J7060